=== PATIENT | female | born 2000 | race African-American/Black ===

== ENCOUNTER 2023-09-05 04:16 | Emergency (ER) | payer MEDICAID ==
[~2023-09-05] VITALS: Ht 165.1 cm; Wt 210.0 kg
[2023-09-05 04:20] VITALS: PULSE 0; RESP 0; O2SAT 0
[2023-09-05 04:21] VITALS: BP 0/0; RESP 0
== END 2023-09-05 10:32 ==
LOC: EMS 04:17 → EDBD 04:17 → EMS 10:32
DX: I46.9 Cardiac arrest, cause unspecified (principal)
CPT/HCPCS: 31500; 92950; 99285; Z7502